=== PATIENT | male | born 1980 | race Hispanic/Latino ===

== ENCOUNTER 2018-03-22 21:32 | Emergency (ER) | payer SELFPAY | END 2018-03-22 23:37 | disposition home or self-care (01) | LOC: EDH 21:32 | DX: L02.31 Cutaneous abscess of buttock (principal); E11.9 Type 2 diabetes mellitus without complications; Z72.0 Tobacco use | CPT/HCPCS: 10060 ==

== ENCOUNTER 2018-11-13 06:20 | Emergency (ER) | payer SELFPAY ==
[~2018-11-13] VITALS: Ht 170.2 cm; Wt 80.7 kg
[2018-11-13 06:54] LABS: BASOPHILS % (AUTO) 0.8 % (0.0-5.0); EOSINOPHILS % (AUTO) 1.9 % (0.0-8.0); HEMATOCRIT 44.5 % (42-54); LYMPHOCYTES % (AUTO) 18.9 % (21.0-51.0); MEAN CORPUSCULAR HEMOGLOBIN 31.2 pg (27.0-33.0); MEAN CORPUSCULAR HGB CONC 34.6 g/dL (32.0-36.0); MEAN CORPUSCULAR VOLUME 90.2 fL (79-99); MONOCYTES % (AUTO) 7.8 % (3.0-13.0); NEUTROPHILS % (AUTO) 70.6 % (40.0-77.0); PLATELET COUNT (AUTO) 168 K/uL (130-400); RED BLOOD CELL COUNT(AUTO) 4.93 MIL/uL (4.50-6.20); RED CELL DISTRIBUTION WIDTH 11.7 % (11.0-15.5); WHITE BLOOD COUNT (AUTO) 5.5 K/uL (4.8-10.8)
[2018-11-13 07:04] LABS: CARBON DIOXIDE 31 mmol/L (21-32); CHLORIDE 96 mmol/L (101-111); GLOMERULAR FILTR. RATE CALC 88 mL/min (>60); GLUCOSE,RANDOM 324 mg/dL (70-105); POTASSIUM 3.6 mmol/L (3.5-5.1); SODIUM SERUM 136 mmol/L (136-145); UREA NITROGEN, BLOOD 7 mg/dL (7-18)
[2018-11-13 07:10] LABS: ALANINE AMINOTRANSFERASE 61 U/L (12-78); ALBUMIN 3.9 g/dL (3.5-5.0); AMYLASE 91 U/L (25-115); ASPARTATE AMINOTRANSFERASE 48 U/L (10-37); BILIRUBIN,TOTAL 2.8 mg/dL (0.2-1.0); CREATINE KINASE, TOTAL 399 U/L (21-232); LIPASE 442 U/L (114-286); TOTAL PROTEIN, SERUM 7.7 g/dL (6.0-8.3)
[2018-11-13 07:12] LABS: APPEARANCE,URINE Clear (CLEAR); BILIRUBIN,URINE Negative (NEGATIVE); GLUCOSE, URINE (UA) >=1000 mg/dL (NEGATIVE); KETONES,URINE Negative (NEGATIVE); LEUKOCYTE ESTERASE ,URINE Negative (NEGATIVE); NITRATE,URINE Negative (NEGATIVE); OCCULT BLOOD,URINE Negative (NEGATIVE); PH,URINE 6.5 (5.0-8.0); PROTEIN,URINE Negative (NEGATIVE)
[2018-11-13] MEDS ORDERED: THIAMINE HCL 100 MG/ML 2ML VIAL ONE (07:12)
[2018-11-13 07:14] LABS: INR 1.14 (0.85-1.15); PARTIAL THROMBOPLASTIN TIME 27.1 SEC (26.3-35.5); PROTHROMBIN TIME 11.9 SEC (9.6-11.6)
[2018-11-13 07:19] LABS: COLOR,URINE DARK YELLOW (YELLOW)
[2018-11-13 07:21] LABS: AMPHET/METH SCREEN,URINE NEGATIVE (NEGATIVE); BARBITURATE SCREEN, URINE NEGATIVE (NEGATIVE); BENZODIAZEPINES SCREEN,URINE NEGATIVE (NEGATIVE); CANNABINOID SCREEN,URINE NEGATIVE (NEGATIVE); COCAINE SCREEN,URINE POSITIVE (NEGATIVE); OPIATE SCREEN,URINE NEGATIVE (NEGATIVE); PHENCYCLIDINE SCREEN,URINE NEGATIVE (NEGATIVE)
[2018-11-13 07:35] LABS: ALCOHOL, BLOOD < 3 mg/dL (0-10)
[2018-11-13 07:37] LABS: BACTERIA,URINE None Seen /HPF (None Seen); RBC,URINE None Seen /HPF (0-1); SQUAMOUS EPITHELIAL CELL,UR Rare /HPF (0-2); WBC,URINE None Seen /HPF (0-1)
[2018-11-13] MEDS ORDERED: SODIUM CHLORIDE 0.9% 1000ML 1,000 ML IV ONE ×2 (07:39→08:30)
[2018-11-13 07:57] LABS: ACETAMINOPHEN < 1 mcg/mL (10-29); SALICYLATE < 2.8 mg/dL (2.8-20.0)
[2018-11-13] MEDS ORDERED: CHLORDIAZEPOXIDE HCL 5 MG CAPSULE PO SCH (08:07)
[2018-11-13] MEDS ORDERED: CHLORDIAZEPOXIDE HCL 5 MG CAPSULE PO ONE (08:26)
== END 2018-11-13 09:44 | disposition home or self-care (01) ==
LOC: EDH 06:20
DX: F10.239 Alcohol dependence with withdrawal, unspecified (principal); Y90.9 Presence of alcohol in blood, level not specified; F14.10 Cocaine abuse, uncomplicated; Z91.14 Patient's other noncompliance with medication regimen; E11.9 Type 2 diabetes mellitus without complications; F41.9 Anxiety disorder, unspecified; F12.10 Cannabis abuse, uncomplicated
CPT/HCPCS: 36415; 80053; 80305; 81001; 82150; 82550; 83690; 83735; 84484; 85025; 85610; 85730; 93005; 96365; 96366; 99285; G0480 ×2; G0481; J3411; J7030 ×2

== ENCOUNTER 2019-09-15 07:32 | Emergency (ER) | payer SELFPAY ==
[2019-09-15] MEDS ORDERED: ONDANSETRON HCL 4 MG/2 ML VIAL ONE (08:25)
[2019-09-15] MEDS ORDERED: THIAMINE HCL 100 MG/ML 2ML VIAL ONE (08:26)
[2019-09-15] MEDS ORDERED: SODIUM CHLORIDE 0.9% 1000ML 1,000 ML IV ONE ×2 (08:26→10:02)
[2019-09-15 08:36] LABS: BASOPHILS % (AUTO) 0.3 % (0.0-5.0); HEMATOCRIT 46.6 % (42-54); LYMPHOCYTES % (AUTO) 1.5 % (21.0-51.0); MEAN CORPUSCULAR HEMOGLOBIN 31.5 pg (27.0-33.0); MEAN CORPUSCULAR HGB CONC 35.2 g/dL (32.0-36.0); MEAN CORPUSCULAR VOLUME 89.6 fL (79-99); MONOCYTES % (AUTO) 4.7 % (3.0-13.0); NEUTROPHILS % (AUTO) 93.1 % (40.0-77.0); PLATELET COUNT (AUTO) 215 K/uL (130-400); RED CELL DISTRIBUTION WIDTH 12.1 % (11.0-15.5); WHITE BLOOD COUNT (AUTO) 15.6 K/uL (4.8-10.8)
[2019-09-15 08:38] LABS: APPEARANCE,URINE Clear (CLEAR); BILIRUBIN,URINE Negative (NEGATIVE); COLOR,URINE Yellow (YELLOW); GLUCOSE, URINE (UA) >=1000 mg/dL (NEGATIVE); KETONES,URINE >=160 mg/dL (NEGATIVE); LEUKOCYTE ESTERASE ,URINE Negative (NEGATIVE); NITRATE,URINE Negative (NEGATIVE); OCCULT BLOOD,URINE Small (NEGATIVE); PROTEIN,URINE POS 2+ mg/dL (NEGATIVE)
[2019-09-15 08:45] LABS: AMPHET/METH SCREEN,URINE NEGATIVE (NEGATIVE); BARBITURATE SCREEN, URINE NEGATIVE (NEGATIVE); BENZODIAZEPINES SCREEN,URINE NEGATIVE (NEGATIVE); CANNABINOID SCREEN,URINE NEGATIVE (NEGATIVE); COCAINE SCREEN,URINE NEGATIVE (NEGATIVE); OPIATE SCREEN,URINE NEGATIVE (NEGATIVE); PHENCYCLIDINE SCREEN,URINE NEGATIVE (NEGATIVE)
[2019-09-15 08:48] LABS: BACTERIA,URINE Few /HPF (None Seen); RBC,URINE 0-1 /HPF (0-1); WBC,URINE None Seen /HPF (0-1)
[2019-09-15 08:49] LABS: SQUAMOUS EPITHELIAL CELL,UR 0-2 /HPF (0-2)
[2019-09-15 08:53] LABS: INR 1.11 (0.85-1.15); PARTIAL THROMBOPLASTIN TIME 24.5 SEC (26.3-35.5); PROTHROMBIN TIME 11.9 SEC (9.6-11.6)
[2019-09-15 08:57] LABS: ALANINE AMINOTRANSFERASE 193 U/L (12-78); ALCOHOL, BLOOD < 3 mg/dL (0-10); AMYLASE 108 U/L (25-115); ASPARTATE AMINOTRANSFERASE 134 U/L (10-37); BILIRUBIN,TOTAL 3.7 mg/dL (0.2-1.0); CARBON DIOXIDE 24 mmol/L (21-32); CREATINE KINASE, TOTAL 329 U/L (21-232); CREATININE 1.3 mg/dL (0.5-1.5); GLOMERULAR FILTR. RATE CALC 65 mL/min (>60); GLUCOSE,RANDOM 294 mg/dL (70-105); LIPASE 303 U/L (114-286); POTASSIUM 3.5 mmol/L (3.5-5.1); SODIUM SERUM 128 mmol/L (136-145); TOTAL PROTEIN, SERUM 9.2 g/dL (6.0-8.3); UREA NITROGEN, BLOOD 14 mg/dL (7-18)
[2019-09-15 09:06] LABS: CHLORIDE 82 mmol/L (101-111)
[2019-09-15] MEDS ORDERED: KETOROLAC TROMETHAMINE 15MG/ML ONE (10:01)
[2019-09-15] MEDS ORDERED: LIDOCAINE HCL 2% VISCOUS 15 ML UDCUP ONE (10:12)
[2019-09-15] MEDS ORDERED: AMPICILLIN SODIUM/SULBACTAM NA 1.5GM VIAL ONE (11:04)
[2019-09-15] MEDS ORDERED: INSULIN HUMULIN R 100 UNIT/ML 3ML ONE (11:06)
[2019-09-16] MEDS ORDERED: METF-446 PO (00:20)
[2019-09-16] MEDS ORDERED: DISU250 PO (04:14)
== END 2019-09-15 11:32 | disposition left against medical advice (07) ==
LOC: EDH 07:32
DX: J02.9 Acute pharyngitis, unspecified (principal); R11.2 Nausea with vomiting, unspecified; R44.3 Hallucinations, unspecified; F10.10 Alcohol abuse, uncomplicated; E11.9 Type 2 diabetes mellitus without complications; F41.9 Anxiety disorder, unspecified
CPT/HCPCS: 36415; 70360; 70490; 71045; 80053; 80305; 81001; 82010; 82150; 82550; 83605; 83690; 84105; 84484; 85025; 85610; 85651; 85730; 86140; 87880; 93005; 96361; 96365; 96367; 96375; 99291; G0480; J0295; J1815; J1885; J2405; J3411; J7030 ×2

== ENCOUNTER 2019-09-15 17:00 | Inpatient (IN) | payer SELFPAY ==
[~2019-09-15] VITALS: Ht 170.2 cm; Wt 81.6 kg
[2019-09-15 17:56] LABS: BASOPHILS % (AUTO) 0.2 % (0.0-5.0); HEMATOCRIT 42.6 % (42-54); LYMPHOCYTES % (AUTO) 3.2 % (21.0-51.0); MEAN CORPUSCULAR HEMOGLOBIN 31.5 pg (27.0-33.0); MEAN CORPUSCULAR HGB CONC 35.4 g/dL (32.0-36.0); MEAN CORPUSCULAR VOLUME 88.9 fL (79-99); MONOCYTES % (AUTO) 9.5 % (3.0-13.0); NEUTROPHILS % (AUTO) 86.7 % (40.0-77.0); PLATELET COUNT (AUTO) 150 K/uL (130-400); RED BLOOD CELL COUNT(AUTO) 4.79 MIL/uL (4.50-6.20); RED CELL DISTRIBUTION WIDTH 12.2 % (11.0-15.5); WHITE BLOOD COUNT (AUTO) 11.1 K/uL (4.8-10.8)
[2019-09-15 18:08] LABS: INR 1.14 (0.85-1.15); PARTIAL THROMBOPLASTIN TIME 25.3 SEC (26.3-35.5); PROTHROMBIN TIME 12.3 SEC (9.6-11.6)
[2019-09-15 18:18] LABS: ALANINE AMINOTRANSFERASE 152 U/L (12-78); ALBUMIN 4.7 g/dL (3.5-5.0); ALCOHOL, BLOOD < 3 mg/dL (0-10); AMYLASE 141 U/L (25-115); ASPARTATE AMINOTRANSFERASE 94 U/L (10-37); CARBON DIOXIDE 30 mmol/L (21-32); CREATININE 1.3 mg/dL (0.5-1.5); GLOMERULAR FILTR. RATE CALC 65 mL/min (>60); GLUCOSE,RANDOM 233 mg/dL (70-105); LIPASE 534 U/L (114-286); POTASSIUM 3.2 mmol/L (3.5-5.1); SODIUM SERUM 131 mmol/L (136-145); TOTAL PROTEIN, SERUM 8.5 g/dL (6.0-8.3); UREA NITROGEN, BLOOD 18 mg/dL (7-18)
[2019-09-15 18:21] LABS: CHLORIDE 89 mmol/L (101-111)
[2019-09-15 18:37] LABS: APPEARANCE,URINE Clear (CLEAR); BILIRUBIN,URINE Moderate (NEGATIVE); COLOR,URINE Orange (YELLOW); GLUCOSE, URINE (UA) >=1000 mg/dL (NEGATIVE); KETONES,URINE >=160 mg/dL (NEGATIVE); LEUKOCYTE ESTERASE ,URINE Negative (NEGATIVE); NITRATE,URINE Negative (NEGATIVE); OCCULT BLOOD,URINE Small (NEGATIVE); PH,URINE 5.5 (5.0-8.0); PROTEIN,URINE POS 2+ mg/dL (NEGATIVE)
[2019-09-15 18:39] LABS: ABG OXYGEN SATURATION 77.9 % (95.0-99.0); BASE EXCESS,VENOUS BLOOD GAS 3.2 (-2.0-3.0); HCO3,VENOUS BLOOD GAS 27.5 (21.0-28.0); PCO2,VENOUS BLOOD GAS 41 (35-48); PH,VENOUS BLOOD GAS 7.448 (7.350-7.450)
[2019-09-15 18:44] LABS: AMPHET/METH SCREEN,URINE NEGATIVE (NEGATIVE); BARBITURATE SCREEN, URINE NEGATIVE (NEGATIVE); BENZODIAZEPINES SCREEN,URINE NEGATIVE (NEGATIVE); CANNABINOID SCREEN,URINE POSITIVE (NEGATIVE); COCAINE SCREEN,URINE NEGATIVE (NEGATIVE); OPIATE SCREEN,URINE NEGATIVE (NEGATIVE); PHENCYCLIDINE SCREEN,URINE NEGATIVE (NEGATIVE)
[2019-09-15 18:46] LABS: BACTERIA,URINE Rare /HPF (None Seen); SQUAMOUS EPITHELIAL CELL,UR Rare /HPF (0-2); WBC,URINE 0-1 /HPF (0-1)
[2019-09-15] MEDS ORDERED: AMPICILLIN SODIUM/SULBACTAM NA 1.5GM VIAL ONE (19:03)
[2019-09-15] MEDS ORDERED: SODIUM CHLORIDE 0.9% 100 ML IV ONE (19:04)
[2019-09-15] MEDS ORDERED: ONDANSETRON HCL 4 MG/2 ML VIAL IV PRN (20:45)
[2019-09-15] MEDS ORDERED: GLUCAGON 1MG KIT 1 MG ML IM PRN (20:45)
[2019-09-15] MEDS ORDERED: DEXTROSE 50%-WATER 50 ML DISP.SYRIN IV PRN (20:45)
[2019-09-15] MEDS ORDERED: LACTATED RINGERS 1000ML 1,000 ML IV ONE (21:28)
[2019-09-15] MEDS ORDERED: FAMOTIDINE/PF 20 MG/2 ML VIAL IV ONE (21:28)
[2019-09-15] MEDS ORDERED: POTASSIUM CHLORIDE 20MEQ/100ML 100 ML IV ONE (22:36)
[2019-09-15] MEDS ORDERED: MAGNESIUM 2GM PREMIX 50ML 50 ML IV PRN (22:45)
[2019-09-15] MEDS ORDERED: POTASSIUM CHLORIDE 20MEQ/100ML 100 ML IV PRN (22:45)
[2019-09-15] MEDS ORDERED: LIDOCAINE HCL-MPF 1% 2ML VIAL IV PRN (22:45)
--- NOTE | 2019-09-15 23:20 | NUR ---
ADMISSION PATIENT TRANSFERRED FROM ER INTO ROOM 411, AWAKE, ALERT AND VERBALLY RESPONSIVE. C/O DISCOMFORT TO THROAT. LR FLUIDS AND POTASSIUM MEDICATION RUNNING TO RIGHT ARM PERIPHERAL IV'S, SITE CLEAN AND DRY, NO REDNESS NOR SWELLING OBSERVED. PATIENT ORIENTED TO ROOM, CALL QUEEN WITHIN REACH, BED IN LOWEST POSITION. Addendum: 09/16/19 at 0016 by MARY PRINCE RN Amended: Links added.
[2019-09-15 23:34] VITALS: BP 148/82
[2019-09-16] MEDS: LACTATED RINGERS 1000ML 1,000 ML IV SCH ×3 (00:18→13:36)
[2019-09-16] MEDS: FAMOTIDINE/PF 20 MG/2 ML VIAL IV SCH ×2 (00:18→08:04)
[2019-09-16] MEDS ORDERED: METF-446 PO (00:20)
[2019-09-16] MEDS: UNASYN 1.5GM+NS 100ML 100 ML IV SCH ×3 (00:43→13:36)
[2019-09-16] MEDS ORDERED: LIDOCAINE HCL 2% VISCOUS 15 ML UDCUP PO SCH (01:15)
[2019-09-16] MEDS ORDERED: KETOROLAC TROMETHAMINE 15MG/ML IV PRN (01:15)
[2019-09-16] MEDS ORDERED: PHENOL 177 ML BOTTLE PO PRN (01:15)
[2019-09-16] MEDS ORDERED: LIDOCAINE HCL 2% VISCOUS 15 ML UDCUP ONE (02:02)
[2019-09-16 03:56] VITALS: BP 129/93
[2019-09-16 03:58] LABS: BASOPHILS % (AUTO) 0.4 % (0.0-5.0); EOSINOPHILS % (AUTO) 0.1 % (0.0-8.0); HEMATOCRIT 42.9 % (42-54); LYMPHOCYTES % (AUTO) 7.2 % (21.0-51.0); MEAN CORPUSCULAR HGB CONC 33.6 g/dL (32.0-36.0); MEAN CORPUSCULAR VOLUME 92.5 fL (79-99); MONOCYTES % (AUTO) 8.7 % (3.0-13.0); NEUTROPHILS % (AUTO) 83.2 % (40.0-77.0); PLATELET COUNT (AUTO) 131 K/uL (130-400); RED BLOOD CELL COUNT(AUTO) 4.64 MIL/uL (4.50-6.20); RED CELL DISTRIBUTION WIDTH 12.3 % (11.0-15.5); WHITE BLOOD COUNT (AUTO) 8.5 K/uL (4.8-10.8)
[2019-09-16] MEDS ORDERED: DISU250 PO (04:14)
[2019-09-16] MEDS ORDERED: SODIUM CHLORIDE 0.9% 1000ML 1,000 ML IV ONE (04:15)
[2019-09-16 04:17] LABS: HEMOGLOBIN A1C 7.9 % (4.0-6.0)
[2019-09-16 04:21] LABS: ALBUMIN 4.2 g/dL (3.5-5.0); BILIRUBIN,DIRECT 0.6 mg/dL (0.0-0.3); BILIRUBIN,TOTAL 3.8 mg/dL (0.2-1.0); CREATININE 1.1 mg/dL (0.5-1.5); MAGNESIUM 2.1 mg/dL (1.80-2.40); POTASSIUM 4.2 mmol/L (3.5-5.1); TOTAL PROTEIN, SERUM 7.6 g/dL (6.0-8.3)
[2019-09-16] MEDS: INSULIN HUMULIN R 100 UNIT/ML 3ML SQ SCH ×3 (05:53→12:00)
[2019-09-16 07:57] VITALS: BP 144/85
[2019-09-16] MEDS ORDERED: METHYLPREDNISOLONE SOD SUCC 125MG/2ML VIAL IVP SCH (11:00)
[2019-09-16 11:48] VITALS: BP 125/89
[2019-09-16 15:30] VITALS: BP 141/98
--- NOTE | 2019-09-16 16:46 | NUR ---
PATIENT WAS SHOWING ERRATIC BEHAVIOR AND WAS VERY NERVOUS AND ANXIOUS. I WENT IN HIS ROOM SEVERAL TIMES THAT I WAS TRYING TO SPEAK WITH THE DOCTOR ABOUT GETTING HIM A DIET SINCE HE WAS NPO. PATIENT HAD SIGNED OUT IN THE EMERGENCY ROOM BEFORE COMING BACK TO THE ER WITH THE SAME SYMPTOMS. PATIENT STATED THAT HE WAS FEELING WORSE AND THAT'S WHY HE CAME BACK IN AND WAS ADMITTED TO ROOM 411. PATIENT HAD PULLED OUT HIS IV THIS MORNING AND SAID THAT HE ACCIDENTLY HIT THE BED AND IT CAME OUT. THIS TIME HE PULLED OUT HIS IV AND WAS BLEEDING WITHOUT ANY CONCERN. BLEEDING STOPPED AND PATIENT BEGAN TO REMOVE HIS TELEMETRY AND WAS GETTING DRESSED. AFTER ATTENDING TO ANOTHER PATIENT WITH A PANIC ATTACK DUE TO LACK OF OXYGEN I WENT IN TO SPEAK WITH HIM AND PATIENT SEEMED DISORIENTED AND CONFUSED, ALTHOUGH HE SEEM TO CONFUSE ME WITH ANOTHER PERSON HE ASKED ME IF I KNEW HIS . AFTER STATING THAT I'VE NEVER MET HER TILL TODAY HE SAID I MUST BE MISTAKEN AND APOLOGIZED. 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 AFTER HE TOLD ME THAT HE WAS LEAVING I IMMEDIATELY TOLD HIM I NEEDED HIM TO SIGN A PAPER WHICH HE SIGNED AN AMA PAPER AND SOON HE COLLECTED ALL HIS BELONGINGS AND WALKED OUT. WARNER STEVENS, PERFECT B[employer]ER FEEDER OFFBEARER, WAS AT THE DOOR AND SHE ASKED HIM WHAT HE NEEDED AND HE ASKED FOR DIRECTIONS OUT OF THE HOSPITAL WHICH SHE DIRECTED HIM OUT. Addendum: 09/16/19 at 1707 by AMY CESPEDES RN RN Amended: Links added.
== END 2019-09-16 16:00 | disposition left against medical advice (07) | DRG 152 ==
LOC: EDH 17:00 → EDHIP 20:33 → 4BH 23:30
PROVIDERS: ADMIT Internal Medicine; ATTEND Internal Medicine
DX: J03.90 Acute tonsillitis, unspecified (principal); E11.10 Type 2 diabetes mellitus with ketoacidosis without coma; Z53.29 Procedure and treatment not carried out because of patient's decision for other reasons; E66.9 Obesity, unspecified; Z68.28 Body mass index [BMI] 28.0-28.9, adult
CPT/HCPCS: 36415; 36600; 80053; 80305; 82010; 82150; 82248; 82803; 82948; 83036; 83605; 83690; 83735; 84145; 84484; 85025; 85610; 85730; 93005; G0378; G0480; J0295; J1885; J2405; J2930; J3480; J3490; J7120

== ENCOUNTER 2020-02-16 18:24 | Emergency (ER) | payer OTHER ==
[~2020-02-16 18:24] MED LIST: DISU250 PO; METF-446 PO
[2020-02-16] MEDS ORDERED: HYDROXYZINE HCL 25 MG TABLET ONE (19:01)
[2020-02-16 19:14] LABS: APPEARANCE,URINE Clear (CLEAR); BILIRUBIN,URINE Negative (NEGATIVE); COLOR,URINE Yellow (YELLOW); GLUCOSE, URINE (UA) Negative (NEGATIVE); KETONES,URINE Trace mg/dL (NEGATIVE); LEUKOCYTE ESTERASE ,URINE Negative (NEGATIVE); NITRATE,URINE Negative (NEGATIVE); OCCULT BLOOD,URINE Negative (NEGATIVE); PROTEIN,URINE Negative (NEGATIVE)
[2020-02-16 19:22] LABS: AMPHET/METH SCREEN,URINE NEGATIVE (NEGATIVE); BARBITURATE SCREEN, URINE NEGATIVE (NEGATIVE); BENZODIAZEPINES SCREEN,URINE NEGATIVE (NEGATIVE); CANNABINOID SCREEN,URINE NEGATIVE (NEGATIVE); COCAINE SCREEN,URINE NEGATIVE (NEGATIVE); OPIATE SCREEN,URINE NEGATIVE (NEGATIVE); PHENCYCLIDINE SCREEN,URINE NEGATIVE (NEGATIVE)
[2020-02-16 19:25] LABS: BASOPHILS % (AUTO) 1.2 % (0.0-5.0); EOSINOPHILS % (AUTO) 1.7 % (0.0-8.0); HEMATOCRIT 40.4 % (42-54); LYMPHOCYTES % (AUTO) 12.7 % (21.0-51.0); MEAN CORPUSCULAR HEMOGLOBIN 32.2 pg (27.0-33.0); MEAN CORPUSCULAR HGB CONC 34.9 g/dL (32.0-36.0); MEAN CORPUSCULAR VOLUME 92.2 fL (79-99); MONOCYTES % (AUTO) 15.4 % (3.0-13.0); NEUTROPHILS % (AUTO) 68.5 % (40.0-77.0); PLATELET COUNT (AUTO) 145 K/uL (130-400); RED BLOOD CELL COUNT(AUTO) 4.38 MIL/uL (4.50-6.20); RED CELL DISTRIBUTION WIDTH 12.3 % (11.0-15.5); WHITE BLOOD COUNT (AUTO) 4.1 K/uL (4.8-10.8)
[2020-02-16 19:29] LABS: BACTERIA,URINE Rare /HPF (None Seen); RBC,URINE 51-100 /HPF (0-1)
[2020-02-16 19:30] LABS: SQUAMOUS EPITHELIAL CELL,UR Rare /HPF (0-2)
[2020-02-16 19:34] LABS: CREATININE 0.9 mg/dL (0.5-1.5); POTASSIUM 3.4 mmol/L (3.5-5.1)
[2020-02-16 19:38] LABS: ALBUMIN 4.6 g/dL (3.5-5.0); BILIRUBIN,TOTAL 2.3 mg/dL (0.2-1.0); TOTAL PROTEIN, SERUM 8.4 g/dL (6.0-8.3)
== END 2020-02-16 20:44 | disposition home or self-care (01) ==
LOC: EDH 18:24
DX: F41.9 Anxiety disorder, unspecified (principal); R06.4 Hyperventilation; E11.9 Type 2 diabetes mellitus without complications; F10.10 Alcohol abuse, uncomplicated
CPT/HCPCS: 36415; 71045; 80053; 80305; 81001; 85025; 96372

== ENCOUNTER 2020-06-16 18:10 | Inpatient (IN) | payer OTHER ==
[~2020-06-16] VITALS: Ht 170.2 cm; Wt 63.5 kg
[2020-06-16 19:16] LABS: APPEARANCE,URINE Clear (CLEAR); BILIRUBIN,URINE Negative (NEGATIVE); COLOR,URINE Yellow (YELLOW); GLUCOSE, URINE (UA) Negative (NEGATIVE); KETONES,URINE Negative (NEGATIVE); LEUKOCYTE ESTERASE ,URINE Negative (NEGATIVE); NITRATE,URINE Negative (NEGATIVE); OCCULT BLOOD,URINE Negative (NEGATIVE); PH,URINE 6.5 (5.0-8.0); PROTEIN,URINE Negative (NEGATIVE); UROBILINOGEN,URINE 0.2 mg/dL (0.2-1.0)
[2020-06-16 19:49] LABS: BASOPHILS % (AUTO) 2.1 % (0.0-5.0); EOSINOPHILS % (AUTO) 5.2 % (0.0-8.0); HEMATOCRIT 34.7 % (42-54); LYMPHOCYTES % (AUTO) 24.5 % (21.0-51.0); MEAN CORPUSCULAR HGB CONC 33.4 g/dL (32.0-36.0); MEAN CORPUSCULAR VOLUME 92.8 fL (79-99); MONOCYTES % (AUTO) 17.3 % (3.0-13.0); NEUTROPHILS % (AUTO) 50.9 % (40.0-77.0); PLATELET COUNT (AUTO) 93 K/uL (130-400); RED BLOOD CELL COUNT(AUTO) 3.74 MIL/uL (4.50-6.20); RED CELL DISTRIBUTION WIDTH 14.6 % (11.0-15.5); WHITE BLOOD COUNT (AUTO) 3.3 K/uL (4.8-10.8)
[2020-06-16 19:58] LABS: CARBON DIOXIDE 29 mmol/L (21-32); CHLORIDE 99 mmol/L (101-111); CREATININE 0.6 mg/dL (0.5-1.5); GLOMERULAR FILTR. RATE CALC 157 mL/min (>60); GLUCOSE,RANDOM 184 mg/dL (70-105); POTASSIUM 3.1 mmol/L (3.5-5.1); SODIUM SERUM 139 mmol/L (136-145); UREA NITROGEN, BLOOD 5 mg/dL (7-18)
[2020-06-16 20:01] LABS: INR 1.2 (0.85-1.15); PROTHROMBIN TIME 12.9 SEC (9.6-11.6)
[2020-06-16 20:03] LABS: ALANINE AMINOTRANSFERASE 142 U/L (12-78); ALBUMIN 3.8 g/dL (3.5-5.0); ASPARTATE AMINOTRANSFERASE 124 U/L (10-37); BILIRUBIN,TOTAL 0.9 mg/dL (0.2-1.0); LIPASE 992 U/L (114-286); TOTAL PROTEIN, SERUM 7.3 g/dL (6.0-8.3)
[2020-06-16 20:24] LABS: CRP QUANTITATIVE < 2.00 mg/L (0.00-9.0)
[2020-06-16 20:49] LABS: ERYTHROCYTE SEDIMENTATION RATE 18 MM/HR (0-15)
[2020-06-16] MEDS ORDERED: SODIUM CHLORIDE 0.9% 1000ML 1,000 ML IV ONE (21:14)
[2020-06-16] MEDS ORDERED: VANCOMYCIN 1GM+NS 250ML 250 ML IV ONE (21:14)
[2020-06-16] MEDS ORDERED: ZOSYN 3.375GM+NS 50ML 50 ML IV ONE (21:14)
[2020-06-16 21:40] LABS: AMPHET/METH SCREEN,URINE NEGATIVE (NEGATIVE); BARBITURATE SCREEN, URINE NEGATIVE (NEGATIVE); BENZODIAZEPINES SCREEN,URINE NEGATIVE (NEGATIVE); CANNABINOID SCREEN,URINE NEGATIVE (NEGATIVE); COCAINE SCREEN,URINE NEGATIVE (NEGATIVE); OPIATE SCREEN,URINE NEGATIVE (NEGATIVE); PHENCYCLIDINE SCREEN,URINE NEGATIVE (NEGATIVE)
[2020-06-16] MEDS ORDERED: CHLORDIAZEPOXIDE HCL 25 MG CAP PO PRN (21:45)
[2020-06-16] MEDS ORDERED: MAG HYDROX/AL HYDROX/SIMETH ES 30 ML SUSP UDCUP PO PRN (21:45)
[2020-06-16] MEDS ORDERED: ACETAMINOPHEN 325 MG TAB PO PRN ×2 (21:45)
[2020-06-16] MEDS ORDERED: LACTULOSE 20 GM/30 ML UDCUP PO PRN (21:45)
[2020-06-16] MEDS ORDERED: DiphenhydrAMINE HCL 50 MG/ML VIAL IV PRN (21:45)
[2020-06-16] MEDS ORDERED: ACETAMINOPHEN-CODEINE 300/30MG TAB PO PRN (21:45)
[2020-06-16] MEDS ORDERED: THIAMINE HCL 100 MG, FOLIC ACID 1 MG, M.V.I. IV [ADULT] 10 ML in SODIUM CHLORIDE 0.9% 1... IV SCH (21:45)
[2020-06-16] MEDS ORDERED: ONDANSETRON HCL 4 MG/2 ML VIAL IV PRN (21:45)
[2020-06-16] MEDS ORDERED: GUAIFENESIN-DM 200/20 MG 10 ML PO PRN (21:45)
[2020-06-16] MEDS ORDERED: DIPHENHYDRAMINE HCL 25 MG CAPSULE PO PRN (21:45)
[2020-06-16] MEDS ORDERED: LORAZEPAM 2 MG/ML 1 ML VIAL IVP PRN ×2 (21:45)
[2020-06-16] MEDS ORDERED: NITROGLYCERIN 0.4 MG SL TAB SL PRN (21:45)
[2020-06-16] MEDS ORDERED: PHARMACY COMMUNICATION MISC PRN (21:45)
[2020-06-16] MEDS ORDERED: POTASSIUM BICARB/CIT AC 25 MEQ TABLET.EFF ONE (22:28)
[2020-06-16] MEDS ORDERED: FAMOTIDINE 20MG TAB 20 MG TAB ONE (22:46)
[2020-06-16] MEDS ORDERED: ACETAMINOPHEN-CODEINE 300/30MG TAB ONE (22:49)
[2020-06-17] MEDS ORDERED: LORAZEPAM 2 MG/ML 1 ML VIAL ONE (01:21)
[2020-06-17] MEDS ORDERED: DEXTROSE 50%-WATER 50 ML DISP.SYRIN IV PRN (02:15)
[2020-06-17] MEDS ORDERED: POTASSIUM CHLORIDE 10% ELIXIR 20 MEQ/15 ML UDCUP PO PRN (02:15)
[2020-06-17] MEDS ORDERED: GLUCAGON 1MG KIT 1 MG ML IM PRN (02:15)
[2020-06-17] MEDS ORDERED: POTASSIUM CHLORIDE 20MEQ/100ML 100 ML IV PRN ×2 (02:15)
[2020-06-17 04:39] LABS: EOSINOPHILS % (AUTO) 6.9 % (0.0-8.0); HEMATOCRIT 32.2 % (42-54); LYMPHOCYTES % (AUTO) 29.9 % (21.0-51.0); MEAN CORPUSCULAR HEMOGLOBIN 32.4 pg (27.0-33.0); MEAN CORPUSCULAR HGB CONC 35.1 g/dL (32.0-36.0); MEAN CORPUSCULAR VOLUME 92.3 fL (79-99); MONOCYTES % (AUTO) 17.2 % (3.0-13.0); NEUTROPHILS % (AUTO) 43.5 % (40.0-77.0); PLATELET COUNT (AUTO) 78 K/uL (130-400); RED BLOOD CELL COUNT(AUTO) 3.49 MIL/uL (4.50-6.20); RED CELL DISTRIBUTION WIDTH 14.7 % (11.0-15.5)
[2020-06-17 04:47] LABS: HEMOGLOBIN A1C 6.4 % (4.0-6.0)
[2020-06-17 04:52] LABS: ALBUMIN 3.3 g/dL (3.5-5.0); BILIRUBIN,TOTAL 1.3 mg/dL (0.2-1.0); CREATININE 0.5 mg/dL (0.5-1.5); POTASSIUM 3.3 mmol/L (3.5-5.1); TOTAL PROTEIN, SERUM 6.2 g/dL (6.0-8.3)
[2020-06-17] MEDS ORDERED: MORPHINE SULFATE 2 MG/ML 1ML SYG ONE (06:40)
[2020-06-17] MEDS: INSULIN HUMULIN R 100 UNIT/ML 3ML SQ SCH ×4 (07:30→21:00)
[2020-06-17] MEDS: LACTATED RINGERS 1000ML 1,000 ML IV SCH ×2 (07:45→09:44)
[2020-06-17] MEDS ORDERED: FAMOTIDINE 20MG TAB 20 MG TAB ONE (07:48)
[2020-06-17] MEDS ORDERED: THIAMINE HCL 100 MG/ML 2ML VIAL ONE (07:48)
[2020-06-17] MEDS ORDERED: MULTIVITAMIN TABLET ONE (07:49)
[2020-06-17] MEDS ORDERED: FOLIC ACID 1 MG TABLET ONE (07:49)
[2020-06-17 08:00] VITALS: BP 158/109
[2020-06-17] MEDS ORDERED: CHLORDIAZEPOXIDE HCL 25 MG CAP ONE (08:01)
[2020-06-17] MEDS: THIAMINE HCL 100 MG/ML 2ML VIAL IV SCH (09:00)
[2020-06-17] MEDS: FAMOTIDINE 20MG TAB 20 MG TAB PO SCH ×2 (09:00→21:37)
[2020-06-17] MEDS: MULTIVITAMIN TABLET PO SCH (09:00)
[2020-06-17] MEDS: FOLIC ACID 1 MG TABLET PO SCH (09:00)
[2020-06-17] MEDS ORDERED: MAGNESIUM 2GM PREMIX 50ML 50 ML IV SCH (09:30)
[2020-06-17] MEDS: CHLORDIAZEPOXIDE HCL 25 MG CAP PO PRN ×2 (09:43→16:37)
[2020-06-17] MEDS ORDERED: ZOSYN 3.375GM+NS 50ML 50 ML IV SCH ×2 (09:45→21:00)
[2020-06-17 11:49] VITALS: BP 161/103
[2020-06-17] MEDS ORDERED: COMPOUND IV REFRIGERATED 1 EACH MISC ONE (11:56)
[2020-06-17] MEDS ORDERED: COMPOUND IV REFRIGERATED 1 EACH IVSOLN MISC PRN (12:15)
[2020-06-17] MEDS: POTASSIUM CHLORIDE 20 MEQ ERTAB PO PRN ×3 (13:30→21:38)
[2020-06-17] MEDS: MORPHINE SULFATE 4 MG/1ML SYG IV PRN (13:41)
[2020-06-17 17:25] VITALS: BP 143/92
[2020-06-17 19:15] VITALS: BP 112/82
[2020-06-17 23:28] VITALS: BP 115/67
[2020-06-18 04:02] VITALS: BP 139/80
[2020-06-18 04:50] LABS: BASOPHILS % (AUTO) 1.8 % (0.0-5.0); EOSINOPHILS % (AUTO) 7.2 % (0.0-8.0); HEMATOCRIT 36.3 % (42-54); LYMPHOCYTES % (AUTO) 26.6 % (21.0-51.0); MEAN CORPUSCULAR HEMOGLOBIN 30.9 pg (27.0-33.0); MEAN CORPUSCULAR HGB CONC 33.3 g/dL (32.0-36.0); MEAN CORPUSCULAR VOLUME 92.8 fL (79-99); MONOCYTES % (AUTO) 15.3 % (3.0-13.0); NEUTROPHILS % (AUTO) 48.6 % (40.0-77.0); PLATELET COUNT (AUTO) 110 K/uL (130-400); RED BLOOD CELL COUNT(AUTO) 3.91 MIL/uL (4.50-6.20); RED CELL DISTRIBUTION WIDTH 14.6 % (11.0-15.5); WHITE BLOOD COUNT (AUTO) 2.2 K/uL (4.8-10.8)
[2020-06-18] MEDS ORDERED: MORPHINE SULFATE 2 MG/ML 1ML SYG ONE ×2 (04:55→11:52)
[2020-06-18 05:16] LABS: ALBUMIN 3.6 g/dL (3.5-5.0); BILIRUBIN,TOTAL 2.1 mg/dL (0.2-1.0); CREATININE 0.6 mg/dL (0.5-1.5); POTASSIUM 4.1 mmol/L (3.5-5.1); TOTAL PROTEIN, SERUM 6.7 g/dL (6.0-8.3)
[2020-06-18 05:26] LABS: EOSINOPHILS % (MANUAL) 7 % (1-6); LYMPHOCYTES % (MANUAL) 35 % (22-44); MONOCYTES % (MANUAL) 14 % (2-9); SEGMENTED NEUTROPHILS % 44 % (40-70)
[2020-06-18 05:27] LABS: MAN.DIFF COMMENT-IMPRESSION MANUAL DIFFERENTIAL; PLATELET MORPHOLOGY COMMENT DECREASED
[2020-06-18] MEDS: INSULIN HUMULIN R 100 UNIT/ML 3ML SQ SCH ×3 (05:54→16:30)
[2020-06-18 08:02] VITALS: BP 144/93
[2020-06-18] MEDS: MORPHINE SULFATE 4 MG/1ML SYG IV PRN (09:07)
[2020-06-18] MEDS: THIAMINE HCL 100 MG/ML 2ML VIAL IV SCH (09:12)
[2020-06-18] MEDS: FOLIC ACID 1 MG TABLET PO SCH (09:13)
[2020-06-18] MEDS: FAMOTIDINE 20MG TAB 20 MG TAB PO SCH (09:13)
[2020-06-18] MEDS: MULTIVITAMIN TABLET PO SCH (09:13)
[2020-06-18] MEDS ORDERED: MORPHINE SULFATE 2 MG/ML 1ML SYG IVP PRN (11:45)
[2020-06-18 12:07] VITALS: BP 128/99
[2020-06-18] MEDS ORDERED: HYDROMORPHONE HCL 0.5 MG/0.5 ML ML IVP PRN (13:15)
[2020-06-18 16:24] VITALS: BP 146/101
== END 2020-06-18 19:20 | disposition left against medical advice (07) | DRG 300 ==
LOC: EDH 18:10 → EDHIP 18:11 → 3DH 06-17 08:55
PROVIDERS: ADMIT Family Medicine; ATTEND Family Medicine
DX: E11.52 Type 2 diabetes mellitus with diabetic peripheral angiopathy with gangrene (principal); K86.1 Other chronic pancreatitis; E87.1 Hypo-osmolality and hyponatremia; F10.130 Alcohol abuse with withdrawal, uncomplicated; E87.6 Hypokalemia; E83.42 Hypomagnesemia; K75.9 Inflammatory liver disease, unspecified; F10.120 Alcohol abuse with intoxication, uncomplicated; F41.9 Anxiety disorder, unspecified; Z53.29 Procedure and treatment not carried out because of patient's decision for other reasons; Y90.9 Presence of alcohol in blood, level not specified
CPT/HCPCS: 36415; 73140; 76705; 80053; 80305; 81003; 82948; 83036; 83605; 83690; 83735; 83880; 84145; 84425; 84484; 85025; 85610; 85651; 85730; 86140; 87040; 93930; G0378; J1170; J2060; J2270; J2543; J3370; J3411; J3475; J3490; J7030; J7120

== ENCOUNTER 2020-09-06 14:05 | Emergency (ER) | payer SELFPAY ==
[~2020-09-06] VITALS: Ht 167.6 cm; Wt 65.8 kg
[~2020-09-06 14:05] MED LIST changes: -DISU250 PO; +DISU250T14 PO
[2020-09-06 14:42] LABS: BASOPHILS % (AUTO) 0.7 % (0.0-5.0); EOSINOPHILS % (AUTO) 2.1 % (0.0-8.0); HEMATOCRIT 42.6 % (42-54); LYMPHOCYTES % (AUTO) 12.2 % (21.0-51.0); MEAN CORPUSCULAR HEMOGLOBIN 30.1 pg (27.0-33.0); MEAN CORPUSCULAR VOLUME 88.4 fL (79-99); MONOCYTES % (AUTO) 5.6 % (3.0-13.0); NEUTROPHILS % (AUTO) 78.9 % (40.0-77.0); PLATELET COUNT (AUTO) 130 K/uL (130-400); RED BLOOD CELL COUNT(AUTO) 4.82 MIL/uL (4.50-6.20); RED CELL DISTRIBUTION WIDTH 11.9 % (11.0-15.5); WHITE BLOOD COUNT (AUTO) 7.6 K/uL (4.8-10.8)
[2020-09-06 14:50] LABS: CARBON DIOXIDE 33 mmol/L (21-32); CHLORIDE 94 mmol/L (101-111); CREATININE 0.9 mg/dL (0.5-1.5); GLOMERULAR FILTR. RATE CALC 98 mL/min (>60); GLUCOSE,RANDOM 164 mg/dL (70-105); POTASSIUM 3.5 mmol/L (3.5-5.1); SODIUM SERUM 136 mmol/L (136-145); UREA NITROGEN, BLOOD 12 mg/dL (7-18)
[2020-09-06 15:07] LABS: ALANINE AMINOTRANSFERASE 77 U/L (12-78); ALBUMIN 4.1 g/dL (3.5-5.0); ASPARTATE AMINOTRANSFERASE 77 U/L (10-37); BILIRUBIN,TOTAL 2.5 mg/dL (0.2-1.0); CREATINE KINASE, TOTAL 81 U/L (21-232); MYOGLOBIN 24 ng/mL (10-92); TOTAL PROTEIN, SERUM 8.2 g/dL (6.0-8.3); TROPONIN I < 0.04 ng/mL (0.00-0.06)
[2020-09-06 15:24] LABS: AMPHET/METH SCREEN,URINE NEGATIVE (NEGATIVE); BARBITURATE SCREEN, URINE NEGATIVE (NEGATIVE); BENZODIAZEPINES SCREEN,URINE NEGATIVE (NEGATIVE); CANNABINOID SCREEN,URINE NEGATIVE (NEGATIVE); COCAINE SCREEN,URINE NEGATIVE (NEGATIVE); OPIATE SCREEN,URINE NEGATIVE (NEGATIVE); PHENCYCLIDINE SCREEN,URINE NEGATIVE (NEGATIVE)
[2020-09-06 15:34] VITALS: BP 142/99
[2020-09-06] MEDS ORDERED: 0.9%NACL 1000ML 1,000 ML IV ONE (16:45)
[2020-09-06] MEDS ORDERED: LORAZEPAM 2 MG/ML 1 ML VIAL IVP ONE (16:45)
[2020-09-06 18:48] VITALS: BP 128/89
[2020-09-06] MEDS ORDERED: HYDR-3421 PO (19:35)
[2020-09-06 19:37] VITALS: BP 118/87
== END 2020-09-06 19:51 | disposition home or self-care (01) ==
LOC: EDH 14:05 → MERGE 14:05 → EDH 19:51
DX: R07.89 Other chest pain (principal); F41.9 Anxiety disorder, unspecified; F32.9 Major depressive disorder, single episode, unspecified; E11.9 Type 2 diabetes mellitus without complications
CPT/HCPCS: 36415; 71045; 80053; 80305; 82550; 83874; 84484 ×2; 85025; 93005; 96361; 96374; 99285; J2060; J7030

== ENCOUNTER 2021-03-07 22:08 | Emergency (ER) | payer OTHER ==
[~2021-03-07 22:08] MED LIST changes: +DISU250 PO; -DISU250T14 PO; +HYDR-3421 PO
[2021-03-07 22:28] VITALS: BP 147/90
[2021-03-07] MEDS ORDERED: CEPH500B PO (22:59)
[2021-03-07] MEDS ORDERED: BACITRACIN 28.4 GM OINT TP SCH (23:00)
== END 2021-03-07 23:26 | disposition home or self-care (01) ==
LOC: EDH 22:08
DX: S91.301A Unspecified open wound, right foot, initial encounter (principal); S91.302A Unspecified open wound, left foot, initial encounter; E11.40 Type 2 diabetes mellitus with diabetic neuropathy, unspecified; Z79.84 Long term (current) use of oral hypoglycemic drugs; X58.XXXA Exposure to other specified factors, initial encounter; Y93.89 Activity, other specified; Y92.89 Other specified places as the place of occurrence of the external cause; Y99.8 Other external cause status